=== PATIENT | female | born 1965 | race Caucasian/White ===

== ENCOUNTER 2024-04-02 11:56 | Emergency (ER) | payer BC, SELFPAY ==
[2024-04-02 12:01] VITALS: BP 152/96
[2024-04-02 12:20] VITALS: BMI 29.7
--- NOTE | 2024-04-02 13:09 | ED.GENMED ---
History of Present Illness
General
Chief Complaint: Bowel Problem
Source: patient
Exam Limitations: none
Time Seen by Provider: 04/02/24 12:39
Nursing documentation reviewed up to this point in time: agreed with
History of Present Illness
History of Present Illness:
Patient to ED with complaint of constipation. States she has not had a normal BM x 10 days. Now reports diffuse abdominal pain, RLQ most painful. States she has used an enema, took Miralax daily for 4 days, suppositories x 3 days without relief.
Had a small amt of diarrhea today. Brought self to ED for eval. No prior history of same. Last colonoscopy was 2 year ago. States she was told test was good and that she would not need to return for 10 years
Past History
Past History
ED Past Medical History: Hypercholesterolemia, Psychiatric (anxiety, panic attacks=Klonopin 1 mg prn), Other (kidney stone) and Other (lumbar HNP/radiculopathy)
ED Past Surgical History: Cholecystectomy, Gynecological (hysterectomy), Orthopedic (lumbar fusion 2017) and Urological
Social History
Tobacco: Smoker
Alcohol: Occasional
Drug: None
Personal:
Living: with family
Employment: Employed (sales)
Family History
Family History: Other (n/c)
Review of Systems
Review of Systems
Allergies reviewed?: Yes
All Other Systems: ROS reviewed and negative except as documented in HPI and ROS
Phy Exam
General Physical Exam
General Presentation: well appearing and mild distress
General age: appears stated age
General Skin: warm and dry
General Habitus: normal
General Mental: alert
Cardiovascular Exam
Cardiovascular Exam: regular rate/rhythm
Pulmonary Exam
Pulmonary Exam: no respiratory distress and chest non tender
Gastrointestinal Exam
Gastrointestinal Exam: normal bowel sounds, soft, no organomegaly, non distended and no cva tenderness
Palpation: generalized: Moderate tenderness
Musculoskeletal Exam
Musculoskeletal Exam: full ROM and neuro vasc intact
Skin Exam
Skin Exam: normal color, warm/dry and no rash
Psychiatric Exam
Psychiatric Exam: normal mood/affect
Course
Orders/Labs/Results
Orders:
Orders
04/02/24 13:08
Ketorolac [Toradol] 30 mg IV NOW STA
Abdomen Xray - 1 View [CR Abdomen - 1 View] Urgent
Comment:
Reason For Exam: constipation, pain
04/02/24 13:22
Complete Blood Count/With Diff Urgent
Comprehensive Metabolic Panel Urgent
04/02/24 14:52
HYDROmorphone [Dilaudid] 0.5 mg IV NOW STA
Ondansetron Injectable [Zofran] 4 mg IV NOW STA
04/02/24 14:53
CT Abd/pel W Iv Cont (trauma) Urgent
Comment:
Reason For Exam: diffuse pain
04/02/24 16:08
Amoxicillin 875 mg/Clav 125 mg [Augmentin 875 mg/125 mg] 1 tablet PO NOW STA
Abnormal Lab Results
04/02/24
13:22
Hct 35.9 L %
(37.0-47.0)
04/02/24 13:22
04/02/24 13:22
Vital Signs
Initial and Last Documented VS:
Initial Vital Signs
Temp Pulse Resp BP Pulse Ox
97.7 F 86 18 152/96 100
04/02/24 12:01 04/02/24 12:01 04/02/24 12:01 04/02/24 12:01 04/02/24 12:01
Last Documented Vital Signs
Temp Pulse Resp BP Pulse Ox
97.7 F 59 17 112/77 100
04/02/24 12:01 04/02/24 16:22 04/02/24 16:22 04/02/24 16:22 04/02/24 15:58
*Radiology
Radiology exam reviewed: radiology read reviewed
*Pulse Oximetry
Patient hypoxic: no
*Critical Care Note
Total Time (30-74mins, 75-104mins- exclusive of procedures): Not Applicable
Update Note
Update Note:
Labs, CT results discussed with patient. Diverticulitis. No prior history. Will place on augmentin, discharge home. SHe was given instructions on s/s to return to ED and she is agreeable to plan.
ED Attending Note
-
Portions of this chart may have been created with voice recognition software.� Occasional wrong word or��sound alike� substitutions may have occurred due to the inherent limitations of voice recognition software.
Discharge Plan
Departure
Patient Disposition: Home (Routine Discharge)
Date of Disposition: 04/02/24
Time of Disposition: 16:08
Patient with high blood pressure during this ER visit?: No
Condition: Good
Covid-19: Not Applicable
Discharge Problem:
Diverticulitis
Instructions: Clear Liquid Diet, Diverticulitis (DC)
Prescriptions:
New
amoxicillin-pot clavulanate 875-125 mg tablet
1 tab PO BID Qty: 20 0RF
No Action
clonazepam 1 MG tablet
1 mg PO DAILYPRN PRN (Reason: anxiety)
Patient Comments:
06/21/23 filled on 06/13/23 #60
atorvastatin 10 MG tablet
10 mg PO DAILY
therapeutic multivitamin Tablet
1 tab PO DAILY
acetaminophen 650 mg Tablet Extended Release
650 mg PO DAILYPRN PRN (Reason: mild pain)
bisacodyl [Dulcolax (bisacodyl)] 5 mg Tablet,Delayed Release (Dr/Ec)
5 mg PO DAILYPRN PRN (Reason: constipation)
escitalopram oxalate 10 mg Tablet
10 mg PO DAILY
nitrofurantoin monohyd/m-cryst [Macrobid] 100 mg capsule
100 mg PO BID Qty: 10 0RF
phenazopyridine [Pyridium] 100 mg tablet
100 mg PO BID Qty: 14 0RF
tramadol 50 mg tablet
50 mg PO Q8H PRN (Reason: Pain) Qty: 20 0RF
Referrals:
Freedom Carl, [Family Provider] - Follow up in 2-3 days
Stand Alone Forms: Return to Work
Interventions
Interventions:
*Risk Screen - Suicide Last Done: 04/02/24 12:16
*General Assessment Last Done: 04/02/24 12:16
*Neglect/Abuse Screening Last Done: 04/02/24 12:16
*ED COVID-19 Vaccine History Last Done: 04/02/24 12:16
*Nursing Disposition Last Done: 04/02/24 16:22
EI-Critwk-Erfkuipber Assessment Last Done: 04/02/24 12:16
Discharge Date and Time
Discharge Date/Time: 04/02/24 16:23
Print Language: M[place]GR[place]
[2024-04-02] MEDS: TORADOL 30 MG IV (13:28)
[2024-04-02 13:30] LABS: % Basophils 0.5 % (0-2); % Eosinophils 2.1 % (0-6); % Immature Granulocytes 0.4 % (0-0.5); % Lymphocytes 28.9 % (20.5-51.1); % Monocytes 6.5 % (1.7-9.3); % Neutrophils 61.6 % (42.2-75.2); Absolute Eosinophils 0.2 10^3/uL (0-0.7); Absolute Lymphocytes 2.3 10^3/uL (1.2-3.4); Absolute Monocytes 0.5 10^3/uL (0.1-0.6); Hematocrit 35.9 % (37.0-47.0); Hemoglobin 12.9 g/dL (12.0-16.0); Mean Corp Hgb Conc. 35.9 g/dL (33.0-37.0); Mean Corpuscular Hgb 30.6 pg (27.0-31.0); Mean Corpuscular Volume 85.3 fL (81.0-99.0); Mean Platelet Volume 9.4 fL (7.4-10.4); Nucleated Red Blood Cells % 0 %; Platelet Count 205 10^3/uL (130-400); Red Blood Cell Count 4.21 10^6/uL (4.20-5.40); Red Cell Dist. Width 13.2 % (11.5-14.5); White Blood Cell Count 8.1 10^3/uL (4.8-10.8)
[2024-04-02 13:48] LABS: ALT (SGPT) 20 U/L (0-35); AST (SGOT) 28 U/L (14-36); Albumin 4.4 g/dl (3.5-5.0); Alkaline Phosphatase 89 U/L (38-126); Blood Urea Nitrogen 12 mg/dl (7-17); Calcium 9.9 mg/dl (8.4-10.2); Carbon Dioxide 28 mmol/L (22-30); Chloride 104 mmol/L (98-107); Estimated Creatinine Clearance 66 ml/min; Glucose 92 mg/dl (70-99); Potassium 3.9 mmol/L (3.5-5.1); Sodium 140 mmol/L (135-145); Total Bilirubin 0.6 mg/dl (0.2-1.3); Total Protein 6.7 g/dl (6.3-8.2); eGFR > 60.00
[2024-04-02] MEDS: DILAUDID 0.5 MG IV (15:18)
[2024-04-02] MEDS: ZOFRAN 4 MG IV (15:18)
[2024-04-02 15:19] VITALS: BP 149/82
[2024-04-02 15:58] VITALS: BP 161/81
[2024-04-02] MEDS: AUGMENTIN 875 MG/125 MG 1 TABLET PO (16:15)
[2024-04-02 16:22] VITALS: BP 112/77
== END 2024-04-02 16:23 | disposition home or self-care (01) ==
LOC: EMR 11:56
PROVIDERS: Nurse Practitioner; EMERGENCY PHYSICIAN Emergency Medicine; FAMILY PHYSICIAN Family Medicine
DX: K57.32 Diverticulitis of large intestine without perforation or abscess without bleeding (principal); K59.00 Constipation, unspecified; E78.00 Pure hypercholesterolemia, unspecified; F17.200 Nicotine dependence, unspecified, uncomplicated; Z87.442 Personal history of urinary calculi; Z90.49 Acquired absence of other specified parts of digestive tract; Z90.710 Acquired absence of both cervix and uterus; Z98.1 Arthrodesis status
CPT/HCPCS: 99284; 96374; 96375; 74018; 74177; 80053; 85025; Q9967

== ENCOUNTER 2024-10-03 10:04 | Emergency (ER) | payer BC, SELFPAY ==
[2024-10-03 10:07] VITALS: BP 164/78
[2024-10-03 10:27] LABS: % Basophils 0.4 % (0-2); % Eosinophils 0.9 % (0-6); % Immature Granulocytes 0.3 % (0-0.5); % Lymphocytes 34.8 % (20.5-51.1); % Neutrophils 56.6 % (42.2-75.2); Absolute Eosinophils 0.1 10^3/uL (0-0.7); Absolute Lymphocytes 2.3 10^3/uL (1.2-3.4); Absolute Monocytes 0.5 10^3/uL (0.1-0.6); Absolute Neutrophils 3.8 10^3/uL (1.4-6.5); Hematocrit 36.7 % (37.0-47.0); Hemoglobin 12.4 g/dL (12.0-16.0); Mean Corp Hgb Conc. 33.8 g/dL (33.0-37.0); Mean Corpuscular Hgb 29.6 pg (27.0-31.0); Mean Corpuscular Volume 87.6 fL (81.0-99.0); Mean Platelet Volume 8.9 fL (7.4-10.4); Nucleated Red Blood Cells % 0 %; Platelet Count 204 10^3/uL (130-400); Red Blood Cell Count 4.19 10^6/uL (4.20-5.40); Red Cell Dist. Width 13.7 % (11.5-14.5); White Blood Cell Count 6.7 10^3/uL (4.8-10.8)
[2024-10-03 10:40] LABS: ALT (SGPT) 20 U/L (0-35); AST (SGOT) 24 U/L (14-36); Albumin 4.1 g/dl (3.5-5.0); Alkaline Phosphatase 66 U/L (38-126); Blood Urea Nitrogen 21 mg/dl (7-17); Calcium 9.8 mg/dl (8.4-10.2); Carbon Dioxide 29 mmol/L (22-30); Chloride 106 mmol/L (98-107); Glucose 103 mg/dl (70-99); Potassium 3.8 mmol/L (3.5-5.1); Sodium 140 mmol/L (135-145); Total Bilirubin 0.4 mg/dl (0.2-1.3); Total Protein 6.6 g/dl (6.3-8.2); eGFR > 60.00
[2024-10-03 12:24] VITALS: BP 133/73
[2024-10-03 12:56] VITALS: BMI 29.8
[2024-10-03 13:00] VITALS: BP 130/73
[2024-10-03] MEDS: TORADOL 15 MG IV (14:31)
[2024-10-03] MEDS: NSS 1000 IV (14:33)
--- NOTE | 2024-10-03 15:32 | ED.GENMED ---
History of Present Illness
General
Chief Complaint: Fainting/Passed Out
Source: patient
Exam Limitations: none
Time Seen by Provider: 10/03/24 12:41
History of Present Illness
History of Present Illness:
59 year old female presents complaining of syncopal episode today. She has been experiencing some flank pain that radiates to the front. This has been ongoing for about a week. She has a history of kidney stones. She had an episode of pain today
in her right side and shortly after that she was standing at the sink and started to feel lightheaded and passed out. She woke up on the floor. She complains of headache and neck pain and ongoing right flank pain. No preceding chest pain but
there was lightheadedness. She denies shortness of breath. No recent travel or surgery. No other complaints at this time
Past History
Past History
ED Past Medical History: Hypercholesterolemia, Psychiatric (anxiety, panic attacks=Klonopin 1 mg prn), Other (kidney stone) and Other (lumbar HNP/radiculopathy)
ED Past Surgical History: Cholecystectomy, Gynecological (hysterectomy), Orthopedic (lumbar fusion 2017) and Urological
Social History
Tobacco: Smoker
Alcohol: Occasional
Drug: None
Personal:
Living: with family
Employment: Employed (sales)
Family History
Family History: Other (n/c)
Phy Exam
Physical Exam
Physical Exam:
General: Well-appearing female no acute respiratory distress
HEENT: Normocephalic atraumatic pupils equal round reactive to light oral mucosa moist neck is supple
Heart: Regular rate and rhythm no murmurs
Lungs: Clear no wheeze
Abdomen is soft mild tenderness to the right flank and lower quadrant. No guarding rebound normal bowel sounds nondistended
Musculoskeletal exam: Mild diffuse tenderness about the paraspinous area of the cervical spine
Neurologic: Alert and oriented no facial asymmetry. Good strength to the upper and lower extremities. Pupils equal round reactive to light
Extremities: No cyanosis or edema
Course
Orders/Labs/Results
Orders:
Orders
10/03/24 10:10
Electrocardiogram (*1) Urgent
Reason for Study: Syncope
EKG- Treatment ONCE
10/03/24 10:18
Comprehensive Metabolic Panel Urgent
10/03/24 10:19
Complete Blood Count/With Diff Urgent
10/03/24 13:31
CT Cervical Spine W/o Iv Contr Urgent
Comment:
Reason For Exam: fall
10/03/24 13:32
CT Head W/o Iv Contrast Urgent
Comment:
Reason For Exam: fall
10/03/24 13:33
CT Abd/pel Without Iv Or Oral Urgent
Comment:
Reason For Exam: right flank pain
10/03/24 13:58
0.9% Sodium Chloride 1000 ml [Nss] 1,000 ml IV BOLUS
Ketorolac [Toradol] 15 mg IV NOW STA
Abnormal Lab Results
10/03/24 10/03/24
10:18 10:19
RBC 4.19 L 10^6/uL
(4.20-5.40)
Hct 36.7 L %
(37.0-47.0)
BUN 21 H mg/dl
(7-17)
Glucose 103 H mg/dl
(70-99)
10/03/24 10:19
10/03/24 10:18
Vital Signs
Initial and Last Documented VS:
Initial Vital Signs
Temp Pulse Resp BP Pulse Ox
98.0 F 65 16 164/78 98
10/03/24 10:07 10/03/24 10:07 10/03/24 10:07 10/03/24 10:07 10/03/24 10:07
Last Documented Vital Signs
Temp Pulse Resp BP Pulse Ox
98.0 F 47 12 130/73 97
10/03/24 10:07 10/03/24 14:00 10/03/24 14:00 10/03/24 13:00 10/03/24 14:00
MDM/Problems Addressed
Differential Diagnosis Includes:
Syncope. Right flank and lower abdominal pain. Question vasovagal response versus arrhythmia versus anemia or electrolyte abnormality. Consider renal colic appendicitis or radicular pain. She also struck her head after the fall. CT of the head
and cervical spine ordered to evaluate for intracranial hemorrhage or fracture.
No arrhythmias noted on the monitor. Patient has been nontoxic since arrival. Labs reviewed without significant finding. CT of the head and cervical spine negative for acute traumatic injury. CT of the abdomen shows no obvious acute finding as
well.
I suspect she had a vasovagal episode secondary to the preceding symptoms perhaps related to the pain she was having. Toradol improved symptoms. She did receive fluids. No indication for admission. Stable for discharge.
*Critical Care Note
Total Time (30-74mins, 75-104mins- exclusive of procedures): Not Applicable
ED Attending Note
-
Portions of this chart may have been created with voice recognition software.� Occasional wrong word or��sound alike� substitutions may have occurred due to the inherent limitations of voice recognition software.
Discharge Plan
Departure
Patient Disposition: Home (Routine Discharge)
Date of Disposition: 10/03/24
Time of Disposition: 15:38
Patient with high blood pressure during this ER visit?: No
Discharge Problem:
Syncope
Instructions: Syncope (Fainting) (DC)
Prescriptions:
No Action
clonazepam 1 MG tablet
1 mg PO DAILYPRN PRN (Reason: anxiety)
Patient Comments:
06/21/23 filled on 06/13/23 #60
atorvastatin 10 MG tablet
10 mg PO DAILY
therapeutic multivitamin Tablet
1 tab PO DAILY
acetaminophen 650 mg Tablet Extended Release
650 mg PO DAILYPRN PRN (Reason: mild pain)
bisacodyl [Dulcolax (bisacodyl)] 5 mg Tablet,Delayed Release (Dr/Ec)
5 mg PO DAILYPRN PRN (Reason: constipation)
escitalopram oxalate 10 mg Tablet
10 mg PO DAILY
nitrofurantoin monohyd/m-cryst [Macrobid] 100 mg capsule
100 mg PO BID Qty: 10 0RF
phenazopyridine [Pyridium] 100 mg tablet
100 mg PO BID Qty: 14 0RF
tramadol 50 mg tablet
50 mg PO Q8H PRN (Reason: Pain) Qty: 20 0RF
amoxicillin-pot clavulanate 875-125 mg tablet
1 tab PO BID Qty: 20 0RF
Referrals:
Freedom Carl DO [Family Provider] -
Stand Alone Forms: Return to Work
Activity Restrictions/Additional Instructions:
Rest. Use Tylenol or ibuprofen for pain or fever. Drink plenty of fluids. Return if worse otherwise follow-up with your doctor
Interventions
Interventions:
*Risk Screen - Suicide Last Done: 10/03/24 10:07
*Neglect/Abuse Screening Last Done: 10/03/24 10:07
ED- Fall Risk Assessment Last Done: 10/03/24 12:56
ED- Cardiac Assessment Last Done: 10/03/24 12:56
ED- Neurological Assessment Last Done: 10/03/24 12:56
Discharge Date and Time
Print Language: KU[place]
== END 2024-10-03 16:12 | disposition home or self-care (01) ==
LOC: EMR 10:04
PROVIDERS: EMERGENCY PHYSICIAN Emergency Medicine; FAMILY PHYSICIAN Family Medicine
DX: R55 Syncope and collapse (principal); E78.00 Pure hypercholesterolemia, unspecified; F41.9 Anxiety disorder, unspecified; F41.0 Panic disorder [episodic paroxysmal anxiety]; F17.200 Nicotine dependence, unspecified, uncomplicated; Z87.442 Personal history of urinary calculi; Z90.49 Acquired absence of other specified parts of digestive tract; Z90.710 Acquired absence of both cervix and uterus; Z98.1 Arthrodesis status
CPT/HCPCS: 99284; 96374; 96361; 70450; 72125; 74176; 80053; 85025; 93005

== ENCOUNTER 2025-02-14 06:41 | Emergency (ER) | payer BC, SELFPAY ==
[2025-02-14 06:43] VITALS: BP 150/80
--- NOTE | 2025-02-14 07:18 | ED.GENMED ---
History of Present Illness
<Gene Bernal PA-C - Last Filed: 02/14/25 14:30>
General
Chief Complaint: Abdominal Pain
Source: patient
Time Seen by Provider: 02/14/25 07:00
History of Present Illness
History of Present Illness:
60-year-old female with past medical history of diverticulitis, pancreatitis, GERD presenting to the emergency department for evaluation of generalized abdominal pain which started on Monday described the pain to be rather diffuse, seemingly
worse the epigastrium and accompanied with nausea and vomiting, intermittently relieved with dicyclomine but would return shortly thereafter. This morning patient states the pain seemed to be a little bit more in the right lower quadrant as well
and due to continued pain as well as difficulty tolerating both solids and liquids p.o. decided come to the ER for further evaluation. Patient denies any fevers, chills, rigors, urinary symptoms. She does note that at the onset of the pain she was
a little bit constipated, now more soft stools. Surgical history was noted for previous cholecystectomy and hysterectomy. Social history noncontributory.
Past History
<Gene Bernal PA-C - Last Filed: 02/14/25 14:30>
Past History
ED Past Medical History: Hypercholesterolemia, Psychiatric (anxiety, panic attacks=Klonopin 1 mg prn), Other (kidney stone) and Other (lumbar HNP/radiculopathy)
ED Past Surgical History: Cholecystectomy, Gynecological (hysterectomy), Orthopedic (lumbar fusion 2017) and Urological
Social History
Tobacco: Smoker
Alcohol: Occasional
Drug: None
Personal:
Living: with family
Employment: Employed (sales)
Family History
Family History: Other (n/c)
Review of Systems
<Gene Bernal PA-C - Last Filed: 02/14/25 14:30>
Review of Systems
All Other Systems: ROS reviewed and negative except as documented in HPI and ROS
Phy Exam
<Gene Bernal PA-C - Last Filed: 02/14/25 14:30>
Physical Exam
Physical Exam:
GENERAL: Alert , in no apparent distress
EYE: clear conjunctiva b/l
HEAD: NCAT
ENT: mmm.
CARDIAC: Regular rate and rhythm .
LUNGS: Clear breath sounds bilaterally, no acute respiratory distress, no wheezes/rales/rhonchi
ABDOMEN: Soft, generally tender with pain seemingly worse within the epigastrium and lower abdomen, no r/g, no cvat
NEUROLOGICAL: Alert and oriented
SKIN: Warm and dry, skin intact.
MUSCULOSKELETAL: No edema, well perfused.
PSYCH: Normal and appropriate interaction.
Scores
<Gene Bernal PA-C - Last Filed: 02/14/25 14:30>
Heart Failure Risk
Heart Failure Risk Score: Not Applicable
Heart Score for Chest Pain Patients
STEMI patient?: Not applicable
Withdrawal Assessment of Alcohol
Withdrawal Assessment Completed?: Not applicable
Course
<Gene Bernal PA-C - Last Filed: 02/14/25 14:30>
Orders/Labs/Results
Orders:
Orders
02/14/25 07:14
CT Abd/pelvis W Iv Cont Urgent
Comment:
Reason For Exam: generalized abd pain, previous choley
0.9% Sodium Chloride 1000 ml [Nss] 1,000 ml IV BOLUS
Ketorolac [Toradol] 30 mg IV NOW STA
Ondansetron Injectable [Zofran] 4 mg IV NOW STA
02/14/25 07:19
Complete Blood Count/With Diff Urgent
Comprehensive Metabolic Panel Urgent
Lipase Urgent
Urinalysis Reflex To Culture Urgent
Date Specimen was Collected: 02/14/25
Time Specimen was Collected: 06:58
Urine Microscopic Reflex Cult Urgent
02/14/25 08:21
Electrocardiogram (*1) Urgent
Reason for Study: Abdominal Pain
EKG- Treatment ONCE
Mag Hydrox/Al Hydrox/Simeth [Maalox] 30 ml Phenobarb/Hyoscy/Atropine/Scop [] 10 ml Viscous Lidocaine 2% [Xylocaine Viscous Cup] 10 ml PO NOW
02/14/25 08:27
Troponin I Urgent
02/14/25 10:44
Morphine Sulfate 4 mg IV NOW STA
02/14/25 11:35
Phenobarb/Hyoscy/Atropine/Scop [] 10 ml .ROUTE .STK-MED ONE
02/14/25 11:36
Mag Hydrox/Al Hydrox/Simeth [Maalox] 30 ml .ROUTE .STK-MED ONE
Viscous Lidocaine 2% [Xylocaine Viscous Cup] 15 ml .ROUTE .STK-MED ONE
02/14/25 12:13
HYDROmorphone [Dilaudid] 0.5 mg .ROUTE .STK-MED ONE
02/14/25 12:14
HYDROmorphone [Dilaudid] 0.5 mg IV NOW STA
Pantoprazole [Protonix IV] 40 mg IV NOW STA
02/14/25 12:41
Code Status As Directed
Resuscitation Status: Full Code
PRN Pain Medication Management As Directed
May give lesser potent ordered pain med per pt: Yes
preference::
Protocol:: Medication orders for pain may be administered in a
manner that supports deferring to patient preference
when the pt is:
- Requesting an ordered lesser potent pain medication.
Least to most potent pain medications are defined
as: acetaminophen < NSAID < tramadol < opioids
(morphine, oxycodone, hydromorphone).
- Requesting a lesser dose of the same medication IF
ORDERED.
- Requesting a less intrusive route of administration
if both routes are prescribed by the provider (PO <
IV).
Abnormal Lab Results
02/14/25
07:19
Chloride 110 H mmol/L
(98-107)
Glucose 109 H mg/dl
(70-99)
Ur Occult Blood Reflex 1+ A
(Negative)
Urine RBC 3-6 A /HPF
(0-2)
Urine Bacteria (Reflex) Few A
(Negative)
02/14/25 07:19
02/14/25 07:19
Vital Signs
Initial and Last Documented VS:
Initial Vital Signs
Temp Pulse Resp BP Pulse Ox
97.9 F 80 16 150/80 99
02/14/25 06:43 02/14/25 06:43 02/14/25 06:43 02/14/25 06:43 02/14/25 06:43
Last Documented Vital Signs
Temp Pulse Resp BP Pulse Ox
97.9 F 80 16 150/80 99
02/14/25 06:43 02/14/25 06:43 02/14/25 06:43 02/14/25 06:43 02/14/25 07:22
<Vincenzo Massey, - Last Filed: 02/14/25 12:44>
Orders/Labs/Results
Orders:
Orders
02/14/25 07:14
CT Abd/pelvis W Iv Cont Urgent
Comment:
Reason For Exam: generalized abd pain, previous choley
0.9% Sodium Chloride 1000 ml [Nss] 1,000 ml IV BOLUS
Ketorolac [Toradol] 30 mg IV NOW STA
Ondansetron Injectable [Zofran] 4 mg IV NOW STA
02/14/25 07:19
Complete Blood Count/With Diff Urgent
Comprehensive Metabolic Panel Urgent
Lipase Urgent
Urinalysis Reflex To Culture Urgent
Date Specimen was Collected: 02/14/25
Time Specimen was Collected: 06:58
Urine Microscopic Reflex Cult Urgent
02/14/25 08:21
Electrocardiogram (*1) Urgent
Reason for Study: Abdominal Pain
EKG- Treatment ONCE
Mag Hydrox/Al Hydrox/Simeth [Maalox] 30 ml Phenobarb/Hyoscy/Atropine/Scop [] 10 ml Viscous Lidocaine 2% [Xylocaine Viscous Cup] 10 ml PO NOW
02/14/25 08:27
Troponin I Urgent
02/14/25 10:44
Morphine Sulfate 4 mg IV NOW STA
02/14/25 11:35
Phenobarb/Hyoscy/Atropine/Scop [] 10 ml .ROUTE .STK-MED ONE
02/14/25 11:36
Mag Hydrox/Al Hydrox/Simeth [Maalox] 30 ml .ROUTE .STK-MED ONE
Viscous Lidocaine 2% [Xylocaine Viscous Cup] 15 ml .ROUTE .STK-MED ONE
02/14/25 12:13
HYDROmorphone [Dilaudid] 0.5 mg .ROUTE .STK-MED ONE
02/14/25 12:14
HYDROmorphone [Dilaudid] 0.5 mg IV NOW STA
Pantoprazole [Protonix IV] 40 mg IV NOW STA
02/14/25 12:41
Code Status As Directed
Resuscitation Status: Full Code
PRN Pain Medication Management As Directed
May give lesser potent ordered pain med per pt: Yes
preference::
Protocol:: Medication orders for pain may be administered in a
manner that supports deferring to patient preference
when the pt is:
- Requesting an ordered lesser potent pain medication.
Least to most potent pain medications are defined
as: acetaminophen < NSAID < tramadol < opioids
(morphine, oxycodone, hydromorphone).
- Requesting a lesser dose of the same medication IF
ORDERED.
- Requesting a less intrusive route of administration
if both routes are prescribed by the provider (PO <
IV).
Abnormal Lab Results
02/14/25
07:19
Chloride 110 H mmol/L
(98-107)
Glucose 109 H mg/dl
(70-99)
Ur Occult Blood Reflex 1+ A
(Negative)
Urine RBC 3-6 A /HPF
(0-2)
Urine Bacteria (Reflex) Few A
(Negative)
02/14/25 07:19
02/14/25 07:19
Vital Signs
Initial and Last Documented VS:
Initial Vital Signs
Temp Pulse Resp BP Pulse Ox
97.9 F 80 16 150/80 99
02/14/25 06:43 02/14/25 06:43 02/14/25 06:43 02/14/25 06:43 02/14/25 06:43
Last Documented Vital Signs
Temp Pulse Resp BP Pulse Ox
97.9 F 80 16 150/80 99
02/14/25 06:43 02/14/25 06:43 02/14/25 06:43 02/14/25 06:43 02/14/25 07:22
<Gene Bernal PA-C - Last Filed: 02/14/25 14:30>
MDM/Problems Addressed
Differential Diagnosis Includes:
GERD
Gastritis
Peptic ulcer disease
Duodenitis
Pancreatitis
Colitis
Diverticulitis
Appendicitis
IBS
No symptoms to suggest urinary source for infection
Minimal concern for atypical cardiac presentation
MDM/Problems Addressed:
60-year-old female presenting to the ER for evaluation of GI upset over the last 48 hours, pain generalized, worse within the epigastrium and right lower quadrant. History of diverticulitis and pancreatitis in the past. Intermittent relief with
dicyclomine which she did not take yet this morning. Hemodynamically stable and in no acute distress. Will treat symptoms here with Toradol Zofran and fluids. Labs and CT imaging ordered. Disposition pending.
Chronic conditions affecting care: Previous abdomnial surgery
<Gene Bernal PA-C - Last Filed: 02/14/25 14:30>
*Pulse Oximetry
SaO2: 99
Oxygen Mode of Delivery: Room air
Patient hypoxic: no
*Critical Care Note
Total Time (30-74mins, 75-104mins- exclusive of procedures): Not Applicable
Data Reviewed
Review of Other/Old Records Reveals: Labs and Records
<Gene Bernal PA-C - Last Filed: 02/14/25 14:30>
Patient Management
Discussion with other providers: Hospitalist and [employer]ician
Escalation/DeEscalation of care consider admission/obs:
Patient CT shows a slightly enlarged appendix however this appears to be a chronic finding as she had similar in 2021. Given the location of her pain I did reach out to on-call general surgery to discuss the case and they were able to review the
scan but do not feel patient has acute appendicitis. Despite multiple attempts at pain control with IV and oral medication patient without relief. Discussed risk versus benefit of discharge home versus admission here and ultimately patient did not
feel comfortable going home with her continued pain. Additional Dilaudid and Carafate ordered. Discussed with hospitalist team who accepts. May benefit from GI consult and likely continued outpatient GI and general surgery follow-up.
<Gene Bernal PA-C - Last Filed: 02/14/25 14:30>
Update Note
Update Note:
Shortly after hospitalist team accepted and evaluated the patient patient notified the hospitalist that they ultimately wished to be discharged home instead of being admitted. I confirmed this with the patient and she does note feeling better
following medications. I provided her with information for GI to follow-up with as well as prescription for omeprazole and Carafate. Patient aware of return precautions and follow-up recommendations.
ED Attending Note
<Gene Bernal PA-C - Last Filed: 02/14/25 14:30>
-
Portions of this chart may have been created with voice recognition software.� Occasional wrong word or��sound alike� substitutions may have occurred due to the inherent limitations of voice recognition software.
<Vincenzo Massey DO - Last Filed: 02/14/25 12:44>
ED Attending Note
Patient seen and examined by attending physician: Yes
I performed the substantive portion of visit, reviewed & personally made and approve the management plan that is documented in note by myself or JESSIE.: Yes
Discharge Plan
Departure
Patient Disposition: Home (Routine Discharge)
Date of Disposition: 02/14/25
Time of Disposition: 12:15
Patient with high blood pressure during this ER visit?: Yes
Discharge Problem:
Abdominal pain
Instructions: Abdominal Pain
Prescriptions:
New
omeprazole 40 mg capsule,delayed release(DR/EC)
40 mg PO DAILY Qty: 30 0RF
sucralfate [Carafate] 100 mg/mL suspension
10 ml PO QID Qty: 500 0RF
No Action
clonazepam 1 MG tablet
1 mg PO BIDPRN PRN (Reason: anxiety)
atorvastatin 10 MG tablet
10 mg PO DAILY
therapeutic multivitamin Tablet
1 tab PO DAILY
escitalopram oxalate 10 mg Tablet
10 mg PO DAILY
Patient Comments:
patient stopped her 20mg stated she did not like the way she felt on them
hydrocodone-acetaminophen 7.5-325 mg Tablet
1 tab PO Q6HPRN PRN (Reason: severe pain)
lidocaine 5 % Adhesive Patch,Medicated
1 patch TOPICAL DAILYPRN PRN (Reason: lower back)
ibuprofen [Advil] 200 mg Tablet
200 mg PO Q6HPRN PRN (Reason: mild pain)
Referrals:
Kane Garcia MD [Active, Gastroenterology]
Freedom Carl, DO [Family Provider]
Stand Alone Forms: Return to Work
Interventions
Interventions:
*Risk Screen - Suicide Last Done: 02/14/25 06:43
*General Assessment Last Done: 02/14/25 06:43
*Neglect/Abuse Screening Last Done: 02/14/25 06:43
*ED- Fall Risk Assessment Last Done: 02/14/25 06:43
*ED COVID-19 Vaccine History Last Done: 02/14/25 06:43
*Nursing Disposition Last Done: 02/14/25 13:41
IQ-Jzwexd-Mssotraebc Assessment Last Done: 02/14/25 13:42
Discharge Date and Time
Discharge Date/Time: 02/14/25 13:42
Print Language: ROMANIAN
[2025-02-14] MEDS: NSS 1000 IV (07:30)
[2025-02-14] MEDS: TORADOL 30 MG IV (07:30)
[2025-02-14] MEDS: ZOFRAN 4 MG IV (07:30)
[2025-02-14 07:32] LABS: Hematocrit 37.1 % (37.0-47.0); Hemoglobin 13.0 g/dL (12.0-16.0); Mean Corp Hgb Conc. 35.0 g/dL (33.0-37.0); Mean Corpuscular Volume 85.1 fL (81.0-99.0); Nucleated Red Blood Cells % 0 %; Platelet Count 210 10^3/uL (130-400); Red Cell Dist. Width 13.4 % (11.5-14.5)
[2025-02-14 07:35] LABS: Urine Character Clear (Clear)
[2025-02-14 07:45] LABS: Urine Squamous Cell 16-20 /LPF (Few)
[2025-02-14 07:46] LABS: Urine White Cell 0-2 /HPF (0-5)
[2025-02-14 07:59] LABS: ALT (SGPT) 18 U/L (0-35); AST (SGOT) 23 U/L (14-36); Albumin 4.4 g/dl (3.5-5.0); Alkaline Phosphatase 65 U/L (38-126); Blood Urea Nitrogen 16 mg/dl (7-17); Calcium 9.3 mg/dl (8.4-10.2); Carbon Dioxide 28 mmol/L (22-30); Chloride 110 mmol/L (98-107); Glucose 109 mg/dl (70-99); Lipase 61 U/L (23-300); Potassium 3.9 mmol/L (3.5-5.1); Sodium 142 mmol/L (135-145); Total Protein 6.9 g/dl (6.3-8.2); eGFR > 60.00
[2025-02-14 09:31] LABS: Troponin I < 0.012 ng/ml
[2025-02-14] MEDS: MORPHINE SULFATE 4 MG IV (10:46)
[2025-02-14] MEDS: MAALOX 50 PO (11:38)
[2025-02-14] MEDS: DILAUDID 0.5 MG IV (12:20)
[2025-02-14] MEDS: PROTONIX IV 40 MG IV (12:20)
[2025-02-14 13:33] VITALS: BMI 28.1
== END 2025-02-14 13:42 | disposition home or self-care (01) ==
LOC: EMR 06:41
PROVIDERS: Physician Assistant Medical; EMERGENCY PHYSICIAN Emergency Medicine; FAMILY PHYSICIAN Family Medicine
DX: R10.84 Generalized abdominal pain (principal); K38.8 Other specified diseases of appendix; E78.00 Pure hypercholesterolemia, unspecified; Z87.19 Personal history of other diseases of the digestive system; F17.200 Nicotine dependence, unspecified, uncomplicated; Z87.442 Personal history of urinary calculi; Z90.49 Acquired absence of other specified parts of digestive tract; Z90.710 Acquired absence of both cervix and uterus; Z98.1 Arthrodesis status
CPT/HCPCS: 96374; 96375; 96361; 99284; 74177; 80053; 81003; 81015; 83690; 84484; 85025; 93005; Q9967